=== PATIENT | female | born 1945 | race Two or more races ===

== ENCOUNTER 2021-02-01 05:45 | Day surgery (SDC) | payer OTHER ==
[~2021-02-01 05:45] MED LIST: ADULT LOW DOSE81 M1 PO; AVAPRO300 MG PO; OMEGA-31000 MG PO; SIMVASTATIN40 MG PO; SYNTHROID112 MCG PO
[2021-02-01] MEDS ORDERED: MACROBID 100 M100 MG PO (09:20)
[2021-02-01] MEDS ORDERED: ULTRACET PO (09:21)
== END 2021-02-01 14:27 | disposition home or self-care (01) ==
LOC: CIR.AMB 05:45
PROVIDERS: ATTEND Obstetrics & Gynecology Gynecology
DX: N81.11 Cystocele, midline (principal); Z20.822 Contact with and (suspected) exposure to COVID-19